=== PATIENT | female | born 1970 | race Asian ===

== ENCOUNTER → 2017-02-07 | Outpatient (CLI) | payer OTHER ==
[~2017-02-07] MED LIST: APAP/HYDROCODON1 T13 PO; COL100 PO; DOXYCYCLINE MO100 MG PO; LANSOPRAZOLE30 M2 PO; LEVAQUIN750 MG PO; ZOFRAN8 MG PO
[2017-02-07 13:52] LABS: microscopic required? NO
[2017-02-07 14:01] LABS: UA SPECIFIC GRAVITY 1.015 (1.005-1.035); urine erythrocyte NEGATIVE (NEGATIVE)
[2017-02-07 14:06] LABS: BASOPHIL % 0.7 % (0-2); PLATELET COUNT 324 x10^3mcL (130-400); RED CELL DISTRIBUTION WIDTH 12.3 % (11.5-14.5)
[2017-02-07 14:58] LABS: ALBUMIN 3.9 g/dL (3.4-5.0); ALKALINE PHOSPHATASE 152 U/L (46-116); ALT/SGPT 42 U/L (14-59); AST/SGOT 23 U/L (15-37); BILIRUBIN TOTAL 0.5 mg/dL (0.20-1.00); CALCIUM 9.4 mg/dL (8.5-10.1); CARBON DIOXIDE 30.3 mmol/L (21-32); CHLORIDE SERUM 103 mmol/L (98-107); CHOLESTEROL 196 mg/dL (<200); CREATININE SERUM 0.7 mg/dL (0.6-1.0); GFR1 > 60 mL/min; GLUCOSE SERUM 137 mg/dL (74-106); POTASSIUM SERUM 4.2 mmol/L (3.5-5.1); SODIUM SERUM 142 mmol/L (136-145); TOTAL PROTEIN, SERUM 8.1 g/dL (6.4-8.2)
[2017-02-07 15:00] LABS: CHOLESTEROL/HDL RATIO 6.3; HDL CHOLESTEROL 31 mg/dL (40-60); TRIGLYCERIDES 438 mg/dL (<150)
[2017-02-08 13:17] LABS: microalbumin:creatinine ratio 6.3 (0.0-30.0)
== END | disposition home or self-care (01) ==
LOC: LB 13:29
DX: J45.909 Unspecified asthma, uncomplicated (principal); E11.9 Type 2 diabetes mellitus without complications

== ENCOUNTER 2017-12-17 01:16 | Inpatient (IN) | payer MEDICAID ==
[~2017-12-17] VITALS: Ht 162.6 cm; Wt 76.7 kg
[2017-12-17 01:19] VITALS: Ht 162.6 cm; Wt 76.7 kg
[2017-12-17 02:22] LABS: BASOPHIL % 0.6 % (0-2); PLATELET COUNT 397 x10^3mcL (130-400)
[2017-12-17 02:24] LABS: RED CELL DISTRIBUTION WIDTH 11.3 % (11.5-14.5)
[2017-12-17 02:46] LABS: CALCIUM 9.1 mg/dL (8.5-10.1); CARBON DIOXIDE 25.2 mmol/L (21-32); CHLORIDE SERUM 107 mmol/L (98-107); CREATININE SERUM 0.8 mg/dL (0.6-1.0); GFR1 > 60 mL/min; GLUCOSE SERUM 123 mg/dL (74-106); POTASSIUM SERUM 4.1 mmol/L (3.5-5.1); SODIUM SERUM 143 mmol/L (136-145)
[2017-12-17 02:55] LABS: ALKALINE PHOSPHATASE 126 U/L (46-116); ALT/SGPT 0 U/L (14-59); AST/SGOT 30 U/L (15-37); BILIRUBIN TOTAL 0.07 mg/dL (0.20-1.00); CHOLESTEROL 175 mg/dL (<200); CHOLESTEROL/HDL RATIO 29.2; HDL CHOLESTEROL 6 mg/dL (40-60); LIPASE 3 IU/L (73-393); TOTAL PROTEIN, SERUM 7.4 g/dL (6.4-8.2); TRIGLYCERIDES 260 mg/dL (<150)
[2017-12-17 03:01] LABS: FREE T4 1.15 ng/dL (0.76-1.46); FREE THYROXINE INDEX 3.3 ug/dL (1.4-4.5); T4(THYROXINE) 9.1 ug/dL (4.7-13.3)
[2017-12-17 04:00] LABS: T3 TOTAL 1.05 ng/mL
[2017-12-17] MEDS ORDERED: METFORMIN850 M1 PO (04:23)
[2017-12-17] MEDS ORDERED: FENOFIBRATE145 M1 PO (04:24)
[2017-12-17] MEDS ORDERED: PEPCID20 MG PO (04:25)
[2017-12-17] MEDS ORDERED: ZANTAC 7575 M1 PO (04:25)
[2017-12-17 05:00] LABS: MAGNESIUM 1.8 mg/dL (1.8-2.4); PHOSPHOROUS 3.9 mg/dL (2.5-4.9)
[2017-12-17 05:21] LABS: microscopic required? NO
[2017-12-17 05:34] LABS: UA SPECIFIC GRAVITY <=1.005 (1.005-1.035); urine erythrocyte NEGATIVE (NEGATIVE)
[2017-12-17 06:01] VITALS: BP 140/73
[2017-12-17 08:10] VITALS: BP 137/81
[2017-12-17 17:34] VITALS: BP 124/70
[2017-12-17 21:35] VITALS: BP 118/69
[2017-12-18 05:57] VITALS: BP 137/71
[2017-12-18 06:12] LABS: BASOPHIL % 0.5 % (0-2); PLATELET COUNT 336 x10^3mcL (130-400); RED CELL DISTRIBUTION WIDTH 11.5 % (11.5-14.5)
[2017-12-18 06:24] LABS: CARBON DIOXIDE 27.5 mmol/L (21-32); CHLORIDE SERUM 109 mmol/L (98-107); CREATININE SERUM 0.8 mg/dL (0.6-1.0); GFR1 > 60 mL/min; GLUCOSE SERUM 114 mg/dL (74-106); MAGNESIUM 2.2 mg/dL (1.8-2.4); PHOSPHOROUS 4.9 mg/dL (2.5-4.9); POTASSIUM SERUM 4.7 mmol/L (3.5-5.1); SODIUM SERUM 145 mmol/L (136-145)
[2017-12-18 07:57] VITALS: BP 124/74
[2017-12-18 07:57] LABS: ALBUMIN 3.4 g/dL (3.4-5.0); BILIRUBIN DIRECT 0.11 mg/dL (0.0-0.2); BILIRUBIN TOTAL 0.4 mg/dL (0.20-1.00); TOTAL PROTEIN, SERUM 6.9 g/dL (6.4-8.2)
[2017-12-18 16:20] VITALS: BP 136/70
[2017-12-18 21:53] VITALS: BP 123/66
[2017-12-19 05:01] VITALS: BP 126/67
[2017-12-19 06:07] LABS: CALCIUM 8.4 mg/dL (8.5-10.1); CARBON DIOXIDE 25.8 mmol/L (21-32); CHLORIDE SERUM 109 mmol/L (98-107); CREATININE SERUM 0.8 mg/dL (0.6-1.0); GFR1 > 60 mL/min; GLUCOSE SERUM 136 mg/dL (74-106); MAGNESIUM 2.3 mg/dL (1.8-2.4); PHOSPHOROUS 3.8 mg/dL (2.5-4.9); SODIUM SERUM 142 mmol/L (136-145)
[2017-12-19 06:09] LABS: BASOPHIL % 0.3 % (0-2); PLATELET COUNT 333 x10^3mcL (130-400); RED CELL DISTRIBUTION WIDTH 11.5 % (11.5-14.5)
[2017-12-19 09:26] VITALS: BP 136/70
[2017-12-19 17:21] VITALS: BP 154/85
[2017-12-19 19:52] VITALS: BP 138/77
[2017-12-20 06:01] VITALS: BP 135/77
[2017-12-20 06:01] LABS: CALCIUM 9.1 mg/dL (8.5-10.1); CARBON DIOXIDE 27.4 mmol/L (21-32); CHLORIDE SERUM 112 mmol/L (98-107); CREATININE SERUM 0.8 mg/dL (0.6-1.0); GFR1 > 60 mL/min; GLUCOSE SERUM 116 mg/dL (74-106); POTASSIUM SERUM 4.4 mmol/L (3.5-5.1); SODIUM SERUM 148 mmol/L (136-145)
[2017-12-20 06:14] LABS: BASOPHIL % 0.5 % (0-2); PLATELET COUNT 329 x10^3mcL (130-400); RED CELL DISTRIBUTION WIDTH 12.6 % (11.5-14.5)
[2017-12-20 10:13] VITALS: BP 131/75
[2017-12-20] MEDS ORDERED: GOOD SENSE OMEP20 MG PO (12:03)
[2017-12-20 12:17] VITALS: BP 131/75
== END 2017-12-20 13:40 | disposition home or self-care (01) | DRG 241 ==
LOC: ED 01:16 → MU 04:34
PROVIDERS: Internal Medicine; Internal Medicine Gastroenterology; Specialist
PROC: 0DB68ZX Excision of Stomach, Via Natural or Artificial Opening Endoscopic, Diagnostic (ICD-10-PCS; principal; 2017-12-20 07:30)
PROC: 0DJD8ZZ Inspection of Lower Intestinal Tract, Via Natural or Artificial Opening Endoscopic (ICD-10-PCS; 2017-12-20 07:30)
DX: K29.00 Acute gastritis without bleeding (principal); E11.65 Type 2 diabetes mellitus with hyperglycemia; E03.9 Hypothyroidism, unspecified; K57.30 Diverticulosis of large intestine without perforation or abscess without bleeding; E78.5 Hyperlipidemia, unspecified; Z68.28 Body mass index [BMI] 28.0-28.9, adult; Z79.84 Long term (current) use of oral hypoglycemic drugs; Z87.442 Personal history of urinary calculi; Z90.710 Acquired absence of both cervix and uterus
CPT/HCPCS: 43235; 45378; 78226; 82962; 83880; 84439; A9537; J1200; J1610; J1885; J2250; J2310; J2405; J3010; J3490; J7030; Q0092

== ENCOUNTER 2019-04-26 23:53 | Inpatient (IN) | payer BC ==
[~2019-04-26] VITALS: Ht 162.6 cm; Wt 80.8 kg
[~2019-04-26 23:53] MED LIST changes: +FENOFIBRATE145 M1 PO; +GOOD SENSE OMEP20 MG PO; +METFORMIN850 M1 PO; +PEPCID20 MG PO; +ZANTAC 7575 M1 PO
[2019-04-27] VITALS: Ht 162.6 cm; Wt 80.8 kg
[2019-04-27 00:39] LABS: BASOPHIL % 0.8 % (0-2); PLATELET COUNT 382 x10^3mcL (130-400); RED CELL DISTRIBUTION WIDTH 12.3 % (11.5-14.5)
[2019-04-27 00:52] LABS: CALCIUM 8.9 mg/dL (8.5-10.1); CARBON DIOXIDE 25.7 mmol/L (21-32); CHLORIDE SERUM 103 mmol/L (98-107); GFR1 > 60 mL/min; GLUCOSE SERUM 122 mg/dL (74-106); POTASSIUM SERUM 3.8 mmol/L (3.5-5.1); SODIUM SERUM 141 mmol/L (136-145)
[2019-04-27 00:57] LABS: ALBUMIN 3.9 g/dL (3.4-5.0); ALKALINE PHOSPHATASE 108 U/L (46-116); ALT/SGPT 37 U/L (14-59); AST/SGOT 17 U/L (15-37); BILIRUBIN TOTAL 0.3 mg/dL (0.20-1.00); TOTAL PROTEIN, SERUM 7.9 g/dL (6.4-8.2)
[2019-04-27 02:41] VITALS: BP 132/82
[2019-04-27 04:32] LABS: microscopic required? NO
[2019-04-27 05:02] LABS: UA SPECIFIC GRAVITY >=1.030 (1.005-1.035); urine erythrocyte NEGATIVE (NEGATIVE)
[2019-04-27 05:10] LABS: CHOLESTEROL/HDL RATIO 4.2; MAGNESIUM 1.7 mg/dL (1.8-2.4); PHOSPHOROUS 4.1 mg/dL (2.5-4.9)
[2019-04-27 05:18] LABS: FREE T4 1.24 ng/dL (0.76-1.46); T4(THYROXINE) 8.4 ug/dL (4.7-13.3)
[2019-04-27 05:18] LABS: AMPHETAMINE QUAL UR POSITIVE (See below)
[2019-04-27 05:20] LABS: T3 TOTAL 0.95 ng/mL
[2019-04-27 05:52] VITALS: BP 107/61
[2019-04-27 06:41] LABS: BASOPHIL % 0.6 % (0-2); PLATELET COUNT 333 x10^3mcL (130-400); RED CELL DISTRIBUTION WIDTH 12.4 % (11.5-14.5)
[2019-04-27 08:35] LABS: CARBON DIOXIDE 22.9 mmol/L (21-32); CHLORIDE SERUM 105 mmol/L (98-107); CREATININE SERUM 0.9 mg/dL (0.6-1.0); GFR1 > 60 mL/min; GLUCOSE SERUM 102 mg/dL (74-106); MAGNESIUM 1.7 mg/dL (1.8-2.4); PHOSPHOROUS 4.9 mg/dL (2.5-4.9); POTASSIUM SERUM 3.6 mmol/L (3.5-5.1); SODIUM SERUM 141 mmol/L (136-145)
[2019-04-27 09:00] VITALS: BP 125/67
[2019-04-27 13:03] VITALS: BP 134/76
[2019-04-27 17:28] VITALS: BP 115/71
[2019-04-27 18:32] VITALS: BP 115/71
== END 2019-04-27 19:15 | disposition home or self-care (01) | DRG 313 ==
LOC: ED 23:53 → DU 04-27 01:43
PROVIDERS: Emergency Medicine; ADMIT Student in an Organized Health Care Education/Training Program
DX: R07.89 Other chest pain (principal); E78.5 Hyperlipidemia, unspecified; E11.9 Type 2 diabetes mellitus without complications; E78.00 Pure hypercholesterolemia, unspecified; Z79.84 Long term (current) use of oral hypoglycemic drugs; Z88.5 Allergy status to narcotic agent; Z90.710 Acquired absence of both cervix and uterus; Z87.442 Personal history of urinary calculi; Z82.49 Family history of ischemic heart disease and other diseases of the circulatory system
CPT/HCPCS: 82962; 83880; 84439; 85378; G0378; J1885; Q0092